=== PATIENT | female | born 1935 | race Caucasian/White ===

== ENCOUNTER 2017-07-29 12:00 | Emergency (ER) | payer MEDICARE, OTHER ==
[~2017-07-29] VITALS: Ht 149.9 cm; Wt 56.2 kg
[2017-07-29] MEDS ORDERED: ROSU5TAB PO (12:44)
[2017-07-29] MEDS ORDERED: P EP PO (12:44)
[2017-07-29] MEDS ORDERED: ZINC50TA2 PO (12:44)
[2017-07-29] MEDS ORDERED: BENZ1LOZ58 MM (12:44)
[2017-07-29] MEDS ORDERED: OXYM30SP22 NS (12:44)
[2017-07-29] MEDS ORDERED: LEVO75TA PO (12:44)
[2017-07-29] MEDS ORDERED: [UNRECOGNIZED DRUG - CODE] PO (12:44)
[2017-07-29] MEDS ORDERED: OSEL75CA PO (12:44)
[2017-07-29] MEDS ORDERED: ASCO-382 PO (12:44)
--- NOTE | 2017-07-29 13:20 | NUR ---
Patient discharged to home in stable conditon. Written and verbal after care instructions given. Patient verbalizes understanding of instructions.pt walks in steady gait. pt with son. pt deneis any dizziness or headache. pt has an appt. with own pmd tomorrow.
[2017-07-29 13:33] VITALS: BP 149/61
== END 2017-07-29 13:34 | disposition home or self-care (01) ==
LOC: ER 12:05
DX: S02.2XXA Fracture of nasal bones, initial encounter for closed fracture (principal); J45.909 Unspecified asthma, uncomplicated; Z88.0 Allergy status to penicillin; W01.0XXA Fall on same level from slipping, tripping and stumbling without subsequent striking against object, initial encounter; Y93.89 Activity, other specified; Y99.8 Other external cause status; Y92.481 Parking lot as the place of occurrence of the external cause
CPT/HCPCS: 70486; A4663